=== PATIENT | male | born 1990 | race Caucasian/White ===

== ENCOUNTER 2018-04-26 13:02 | Emergency (ER) | payer SELFPAY ==
[2018-04-26 13:24] VITALS: O2SAT 98
[2018-04-26] MEDS ORDERED: Sodium Chloride 0.9% 1,000 ML IV ONE (14:17)
--- NOTE | 2018-04-26 14:40 | RAD ---
Date of service: 04/26/2018 HISTORY: GI Bleeding COMPARISON: No prior. TECHNIQUE: Chest PA and lateral FINDINGS: LUNGS: No active pulmonary disease. PLEURA: No significant pleural effusion identified. No pneumothorax apparent. CARDIOVASCULAR: Normal. OSSEOUS STRUCTURES: No significant abnormalities. VISUALIZED UPPER ABDOMEN: Normal. OTHER FINDINGS: None. IMPRESSION: No active disease.
[2018-04-26] MEDS ORDERED: Sodium Chloride 0.9% 1,000 ML ONE (14:44)
[2018-04-26 14:45] LABS: BASO % 0.4 % (0.0-2.0); EOS # 0.3 K/uL (0.0-0.7); EOS % 4.1 % (0.0-4.0); HEMOGLOBIN 16.6 g/dL (12.0-18.0); LYMPH # 2.6 K/uL (1.0-4.3); MEAN CELL VOLUME 85.3 fL (80.0-94.0); MEAN CORPUSCULAR HEMOGLOBIN 29.4 pg (27.0-31.0); MEAN CORPUSCULAR HGB CONC 34.5 g/dL (33.0-37.0); MEAN PLATELET VOLUME 7.8 fL (7.2-11.7); MONO # 0.6 K/uL (0.0-0.8); NEUT # 3.5 K/uL (1.8-7.0); NEUT % 49.5 % (50.0-75.0); NRBC % 0.1 % (0.0-2.0); RBC 5.62 Mil/uL (4.40-5.90); RED CELL DISTRIBUTION WIDTH 13.1 % (11.5-14.5); WHITE BLOOD COUNT 7.1 K/uL (4.8-10.8)
[2018-04-26 14:54] LABS: INR 1.1; PROTHROMBIN TIME 12.5 SECONDS (9.7-12.2)
[2018-04-26 14:58] LABS: ALB/GLOB RATIO 1.5 (1.0-2.1); ALBUMIN 5.1 g/dL (3.5-5.0); ALT/SGPT 48 U/L (21-72); AST/SGOT 24 U/L (17-59); BLOOD UREA NITROGEN 14 mg/dL (9-20); GFR NON-AFRICAN AMERICAN > 60
--- NOTE | 2018-04-26 15:03 | C.PDOC ---
History Of Present Illness 27-year-old male, presents to the emergency department with complaints of right upper-quadrant abdominal pain that is associated with nausea and two episodes of bilious/bloody vomiting, prompting visit. Patient notes he has been treating the pain with NSAIDs including 2-3 pills of Ibuprofen or Aleve. Patient states he was seen at urgent care last week, had labs done which were normal and referred to ED. He denies fever, chills, chest pain, shortness of breath, or any other associated symptoms. Time Seen by Provider: 04/26/18 13:53 Chief Complaint (Nursing): GI Problem History Per: Patient History/Exam Limitations: no limitations Onset/Duration Of Symptoms: Days Current Symptoms Are (Timing): Still Present Severity: Moderate Location Of Pain/Discomfort: RUQ Past Medical History Reviewed: Historical Data, Nursing Documentation, Vital Signs Vital Signs: Last Vital Signs Temp 98 F 04/26/18 16:38 Pulse 66 04/26/18 16:38 Resp 17 04/26/18 16:38 BP 139/80 04/26/18 16:38 Pulse Ox 98 04/26/18 16:38 - Medical History PMH: Gastritis, Migraine Family History: States: No Known Family Hx - Social History Hx Alcohol Use: Yes Hx Substance Use: No - Immunization History Hx Tetanus Toxoid Vaccination: No Hx Influenza Vaccination: No Hx Pneumococcal Vaccination: No Review Of Systems Constitutional: Negative for: Fever, Chills Gastrointestinal: Positive for: Nausea, Vomiting, Abdominal Pain Musculoskeletal: Negative for: Back Pain Neurological: Negative for: Weakness, Numbness, Headache, Dizziness Physical Exam - Physical Exam Appears: Non-toxic, No Acute Distress Skin: Normal Color, Warm, Dry, No Rash Head: Atraumatic, Normacephalic Eye(s): bilateral: Normal Inspection Nose: Normal Oral Mucosa: Moist Lips: Normal Appearing Neck: Normal ROM Chest: Symmetrical Cardiovascular: Rhythm Regular, No Murmur Respiratory: Normal Breath Sounds, No Accessory Muscle Use Gastrointestinal/Abdominal: Bowel Sounds, Soft, Tenderness (mild to RUQ, (-) Holm's), No Mass, No Distention, No Guarding, No Rebound Extremity: Bilateral: Atraumatic, Normal Color And Temperature, Normal ROM Neurological/Psych: Oriented x3, Normal Speech Gait: Steady ED Course And Treatment - Laboratory Results Result Diagrams: 04/26/18 14:40 04/26/18 14:40 Lab Interpretation: No Acute Changes O2 Sat by Pulse Oximetry: 98 Pulse Ox Interpretation: Normal (RA) - CT Scan/US US abdomen Other Rad Studies (CT/US): Read By Radiologist, Radiology Report Reviewed CT/US Interpretation: Accession No. : [id number]. Patient Name / ID : JANNY MENDEZ / [id number]. Exam Date : 04/26/2018 14:54:08 ( Approved ). Study Comment : Sex / Age : M / 27Y. Creator : Jostin Verma MD. Dictator : Jostin Verma MD. Metal Mixer : Full Stack Engineer : Jostin Verma MD. Approver2 : Report Date : 04/26/2018 15:35:21. My Comment : . Date of service: 04/26/2018. HISTORY: RUQ abd pain. COMPARISON: None. TECHNIQUE: Sonographic evaluation of the abdomen. FINDINGS: LIVER: Measures 12.8 cm. Normal echogenicity of the liver parenchyma. No mass. No intrahepatic bile duct dilatation. GALLBLADDER: Unremarkable. No gallstones. COMMON BILE DUCT: Measures 2.3 mm. No stones. No dilatation. PANCREAS: Unremarkable as visualized. No mass. No ductal dilatation. RIGHT KIDNEY: Measures 4.4 x 9.3cm. Normal echogenicity. No calculus, mass, or hydronephrosis. LEFT KIDNEY: Measures 5.4 x 8.6cm. Normal echogenicity. No calculus, mass, or hydronephrosis. SPLEEN: Normal in size and contour. No mass. AORTA: No aneurysmal dilatation. IVC: Unremarkable. OTHER FINDINGS: None. IMPRESSION : Unremarkable abdominal sonogram. Medical Decision Making Medical Decision Making: Impression: Vomiting, abdominal pain Plan: * Bloodwork * IVFs, Protonix * US Abdomen * UA Progress: Labs reviewed and shows no acute findings H/H are WNL, despite patient reporting hematemesis. CXR shows no active disease Abdominal US was unremarkable [id number] Mason to discuss case who recommended protonix, and if patient stable can either follow up in clinic for outpatient endoscopy or be admitted medically and have inpatient study. The patient appears well nontoxic has no hemodynamic instability, active abdominal pain or bleeding during ED observation. I discussed the results with patient and explain he needs to see GI for endoscopy and options for treatment. The patient states he feels well and does not want to be admitted at this time, he prefers to follow up in the clinic. I provided patient with copy of labs and studies and information for follow up in clinic. He understands to return to ED if symptoms worsen or other concern Disposition Counseled Patient/Family Regarding: Diagnosis, Need For Followup, Rx Given - Disposition Referrals: Bridger Mason MD [Staff Provider] - Kirti Salinas MD [Staff Provider] - Disposition: HOME/ ROUTINE Disposition Time: 16:09 Condition: STABLE Additional Instructions: PLEASE FOLLOW UP IN THE CLINIC FOR FURTHER CARE TAKE MEDICATION NEEDED Prescriptions: Pantoprazole Sodium [Protonix] 20 mg PO DAILY #20 ect Instructions: Gastrointestinal Bleeding Forms: Campaign Monitor ([place]) - POA Present On Arrival: None - Clinical Impression Clinical Impression: Upper abdominal pain, Hematemesis - Scribe Statement The provider has reviewed the documentation as recorded by the Scribe (Zabrina Ross) All medical record entries made by the Scribe were at my direction and personally dictated by me. I have reviewed the chart and agree that the record accurately reflects my personal performance of the history, physical exam, medical decision making, and the department course for this patient. I have also personally directed, reviewed, and agree with the discharge instructions and disposition.
--- NOTE | 2018-04-26 15:37 | US ---
Date of service: 04/26/2018 HISTORY: RUQ abd pain COMPARISON: None. TECHNIQUE: Sonographic evaluation of the abdomen. FINDINGS: LIVER: Measures 12.8 cm. Normal echogenicity of the liver parenchyma. No mass. No intrahepatic bile duct dilatation. GALLBLADDER: Unremarkable. No gallstones. COMMON BILE DUCT: Measures 2.3 mm. No stones. No dilatation. PANCREAS: Unremarkable as visualized. No mass. No ductal dilatation. RIGHT KIDNEY: Measures 4.4 x 9.3cm. Normal echogenicity. No calculus, mass, or hydronephrosis. LEFT KIDNEY: Measures 5.4 x 8.6cm. Normal echogenicity. No calculus, mass, or hydronephrosis. SPLEEN: Normal in size and contour. No mass. AORTA: No aneurysmal dilatation. IVC: Unremarkable. OTHER FINDINGS: None. IMPRESSION: Unremarkable abdominal sonogram.
[2018-04-26 15:52] LABS: SQUAMOUS EPITHIAL < 1 /hpf (0-5); URINE BILIRUBIN NEGATIVE (NEGATIVE); URINE BLOOD NEGATIVE (NEGATIVE); URINE CLARITY Clear (Clear); URINE COLOR Yellow (YELLOW); URINE GLUCOSE (UA) NORMAL (Normal); URINE LEUKOCYTE ESTERASE NEG Leu/uL (Negative); URINE PROTEIN NEGATIVE (NEGATIVE); URINE UROBILINOGEN NORMAL mg/dL (0.2-1.0)
[2018-04-26 16:12] LABS: BARBITURATES, UR NEGATIVE (NEGATIVE); BENZODIAZEPINES, UR NEGATIVE (NEGATIVE); OPIATES, UR NEGATIVE (NEGATIVE); PHENCYCLIDINE, UR NEGATIVE (NEGATIVE)
[2018-04-26 16:39] VITALS: BP 139/80; PULSE 66; RESP 17; TEMP 98
== END 2018-04-26 16:38 | disposition home or self-care (01) ==
LOC: C.ER 13:02
DX: K92.0 Hematemesis (principal); R10.11 Right upper quadrant pain
CPT/HCPCS: 71046; 76700; 80053; 81001; 85025; 85610; 85730; 96361; 96374; 99285; C9113; G0480; J7030